=== PATIENT | female | born 2005 | race African-American/Black ===

== ENCOUNTER 2023-12-06 09:42 | Emergency (ER) | payer SELFPAY | END 2023-12-06 10:55 | disposition home or self-care (01) | LOC: CSHERS 09:42 | DX: K03.81 Cracked tooth (principal); Z55.6 Problems related to health literacy | CPT/HCPCS: 99282 ==

== ENCOUNTER 2024-03-13 20:01 | Emergency (ER) | payer SELFPAY ==
[~2024-03-13 20:01] MED LIST: Iopamidol 370 76% 100 ML VIAL ONE
[2024-03-13] MEDS ORDERED: Fluorescein Opthalmic Strip ONE (20:44)
[2024-03-13] MEDS ORDERED: Tetracaine 0.5% PF 4 ML BOT ONE (20:45)
[2024-03-13] MEDS ORDERED: Lidocaine 2% Viscous 10 mL, Alum & Magn 30 mL SSW SCH (21:45)
[2024-03-13 22:01] LABS: #Basophils 0.01 10x3/uL (0.0-0.2); #Eosinphils 0.01 10x3/uL (0.0-0.5); #Monocytes 0.24 10x3/uL (0.0-1.1); #Neutrophils 3.24 10x3/uL (1.5-8.4); %Basophils 0.2 % (0.0-2.0); %Eosinophils 0.2 % (0.0-6.0); %Lymphocytes 33.6 % (18.0-47.0); %Monocytes 4.5 % (0.0-10.0); %Neutrophils 61.3 % (40.0-75.0); Hematocrit 30.8 % (34.9-44.5); Hemoglobin 9.2 g/dL (12.0-15.5); Mean Corpuscular HGB CONC 29.9 g/dL (32.0-36.0); Mean Corpuscular Hemoglobin 23.7 pg (27.0-33.0); Mean Corpuscular Volume 79.4 fl (81.6-98.3); Mean Platelet Volume 9.5 fl (7.4-10.4); Platelet Count 295 10x3/uL (150-450); RBC Distribution Width 16.8 % (11.5-14.5); Red Blood Cell (RBC) Count 3.88 10x6/uL (3.90-5.03); White Blood Cell (WBC) Count 5.3 10x3/uL (3.5-10.5)
[2024-03-13 22:04] LABS: BHCG - Serum Negative (NEGATIVE); Pregs Control Background? CLEAR/WHITE (CLR/WHITE); Pregs Control Bar Appear? YES (CONTROL BAR)
[2024-03-13 22:13] LABS: ALT (SGPT) 38 U/L (8-55); AST (SGOT) 148 U/L (5-34); Albumin 3.5 g/dL (3.5-5.0); Alkaline Phosphatase 134 U/L (40-100); Anion Gap 13 mmol/L (10-20); BUN (Urea Nitrogen) 6 mg/dL (7.0-18.7); Bilirubin, Total 0.4 mg/dL (0.2-1.2); Calc. Creatinine Clearance 0 mL/min (70-130); Calcium 9.2 mg/dL (7.8-10.44); Carbon Dioxide 26 mmol/L (22-29); Chloride 107 mmol/L (98-107); Estimated GFR 111; Globulin 3.6 g/dL (2.4-3.5); Glucose 89 mg/dL (70-105); Lipase 33 U/L (8-78); Potassium 3.6 mmol/L (3.5-5.1); Protein, Total 7.1 g/dL (6.0-8.3); Sodium 142 mmol/L (136-145)
[2024-03-13 22:19] LABS: Troponin I Less than 0.010 ng/mL (< 0.028)
== END 2024-03-13 23:42 | disposition home or self-care (01) ==
LOC: CSHERS 20:01
DX: R07.89 Other chest pain (principal)
CPT/HCPCS: 71045; 71275; 80053; 83690; 84484; 84703; 85025; 85379; 93005; Q9967